=== PATIENT | male | born 1970 | race Caucasian/White ===

== ENCOUNTER → 2017-01-30 | Outpatient (CLI) | payer BC, OTHER ==
[~2017-01-30] MED LIST: ATOR10TA88 PO; CARI350T28 PO; CLC100X PO; CYCL10TA6 PO; DYZ PO; OXYC1TAB3 PO; POLY335019 PO; POTA10TA PO; PRLSR20 PO; TRAM-10 PO; VSC/10 PO
--- NOTE | 2017-01-30 13:44 | DIAGNOSTIC IMAGING REPORT ---
RENAL ULTRASOUND HISTORY: N20.0 [id number] Urge and stress niycqeatgrokP71.9 Ne COMPARISON: Renal ultrasound 12/24/2015. FINDINGS: Right kidney: 12.2 cm. No hydronephrosis. Normal corticomedullary differentiation and cortical thickness. Left kidney: 11.6 cm. No hydronephrosis. Normal corticomedullary differentiation and cortical thickness. An 8 mm cyst within the lower pole. Bladder: Echogenic area within the lower anterior pelvis which obscures the bladder. This remains unchanged and is likely due to old postsurgical change. IMPRESSION: No hydronephrosis. The bladder was obscured. Electronically signed by: Pawan Pastor M.D. 01/30/2017 1:43 PM Dictated Date/Time: 01/30/2017 1:40 PM
== END | disposition home or self-care (01) ==
LOC: C.ULTR 12:55
PROVIDERS: ATTEND Urology
DX: N20.0 Calculus of kidney (principal); N31.9 Neuromuscular dysfunction of bladder, unspecified; N39.46 Mixed incontinence

== ENCOUNTER → 2018-03-12 | Outpatient (CLI) | payer OTHER ==
[~2018-03-12] MED LIST changes: +ATOR10TA82 PO; -ATOR10TA88 PO
== END | disposition home or self-care (01) ==
LOC: C.LABSPEC 17:03
PROVIDERS: ATTEND Urology
DX: R33.9 Retention of urine, unspecified (principal); N39.46 Mixed incontinence; N31.9 Neuromuscular dysfunction of bladder, unspecified